=== PATIENT | female | born 1965 | race African-American/Black ===

== ENCOUNTER 2016-12-26 10:43 | Emergency (ER) | payer MEDICAID ==
[~2016-12-26] VITALS: Ht 157.5 cm; Wt 67.6 kg
[2016-12-26 10:46] VITALS: BP 138/92
== END 2016-12-26 11:35 | disposition home or self-care (01) ==
LOC: ER 10:48
DX: J20.9 Acute bronchitis, unspecified (principal)
CPT/HCPCS: 71020